=== PATIENT | female | born 1945 | race Caucasian/White ===

== ENCOUNTER 2019-07-20 16:02 | Emergency (ER) | payer MEDICARE, OTHER, SELFPAY ==
[2019-07-20] VITALS (24 sets, daily range): BP systolic 129–176; BP diastolic 55–99; PULSE 49–71; RESP 16; TEMP 37.3; O2SAT 96–100
--- NOTE | 2019-07-20 16:20 | DI.CT_ITS ---
EXAM: CT HEAD WO CLINICAL HISTORY: fall, trauma to posterior head, frontal PADGETT. TECHNIQUE: A noncontrast enhanced cranial CT was performed. COMPARISON: No exams were available for comparison FINDINGS: There is evidence of small-vessel disease. There is no evidence of an intra or extra-axial hemorrhage or fluid collection. There is no mass effect or midline shift. The white matter differentiation is normal. There is prominence of the ventricles and sulci consistent with atrophy. There is no evidenc e of a skull fracture. There is a small air-fluid level in the left maxillary sinus. There is partia l opacification of the inferior left mastoid air cells. Note is made a small posterior scalp hematoma and laceration. IMPRESSION: No acute intracranial abnormality is demonstrated. Small posterior scalp hematoma and laceration is i dentified. There is only partial visualization of a small air-fluid level in the left maxillary sinus . Partial opacification of the inferior left mastoid air cells is seen.
--- NOTE | 2019-07-20 16:23 | W.ED.GENAD ---
Discharge Plan Disposition Patient Disposition: HOME Discharge Details Chief Complaint: Trauma Clinical Impression: Laceration of scalp, Fall, Hematoma of scalp Primary Care Provider: Amish Carl ED Provider: Vish Garcia Home Meds and New Rx's Prescriptions: Continued simvastatin 5 mg Tablet See Rx Instructions .ROUTE .COMPLEX RF: 0 lisinopril 5 mg Tablet See Rx Instructions .ROUTE .COMPLEX RF: 0 fluoxetine 10 mg Capsule See Rx Instructions .ROUTE .COMPLEX RF: 0 Discharge Instructions Instructions: Laceration (ED), Scalp Contusion in Adults (ED), Staple Care (ED) Additional Instructions: Please return to the emergency department for staple removal in 10 days. Please contact your primary care physician to arrange follow-up. Return to the ER for any worsening or new concerning symptoms. Referrals: Amish Carl [Primary Care Provider] - Medical Decision Making 73-year-old female here with headache and scalp hematoma after slip and fall with trauma to posterior head. Consider acute life-threatening intracranial traumatic hemorrhage. Plan to CT head. Will irrigate wounds and assess for laceration. Tetanus up-to-date 2010. 18:19 --CT head interpreted by radiology: FINDINGS: Brain: Nonspecific hypodensities of the periventricular and deep subcortical white matter, most likely secondary to chronic small vessel ischemic change. No intracranial hemorrhage or extra-axial fluid collection. No evidence of mass effect or midline shift. Staley-white matter differentiation is normal. Ventricles: Prominence of the ventricles and sulci, most likely attributed to parenchymal volume loss. Bones/joints: No acute osseus lesion or fracture. Sinuses: Partially visualized small air-fluid level in left maxillary sinus. Mastoid air cells: Partial opacification of inferior left mastoid air cells. Soft tissues: Small posterior scalp hematoma and laceration. IMPRESSION: 1. No acute intracranial pathology. 2. Small posterior scalp hematoma and laceration. 3. Partially visualized small air-fluid level in left maxillary sinus. 4. Partial opacification of inferior left mastoid air cells. 5. Other chronic findings, as above. Scalp to be irrigated and cleansed by nursing. --Scalp was reexamined after cleansing and small 0.5 cm laceration oozing blood. Let was applied. Wound was closed with staple. Usual customary discharge instructions were provided. HPI General Mode of arrival: ambulatory. Date/Time Provider Initiated Documentation: 07/20/19 16:20. Limitations to Documentation: no limitations. Information obtained by: patient. HPI Narrative: 73-year-old female presents after mechanical slip and fall just prior to arrival with chief complaint of head pain. Patient notes she hit the back of her head on the ground. She did not lose consciousness but does have frontal headache. No associated neck pain. No other injury. Related Data Home Medications Medication Instructions Recorded Confirmed fluoxetine See Rx Instructions .ROUTE .COMPLEX 07/20/19 07/20/19 lisinopril See Rx Instructions .ROUTE .COMPLEX 07/20/19 07/20/19 simvastatin See Rx Instructions .ROUTE .COMPLEX 07/20/19 07/20/19 Allergies Allergy/AdvReac Type Severity Reaction Status Date / Time No Known Allergies Allergy Unverified 07/20/19 16:09 General Stated Complaint: Trauma TIMOTHY: 3 Review of Systems Constitutional Constitutional: Reports headache(s) ENT Ears, Nose, Mouth, and Throat: Reports headache(s) Cardiovascular Cardiovascular: Denies syncope Integumentary/Breasts Skin/Breast: Reports wounds (Posterior scalp) Neurologic Neurologic: Denies syncope and Reports headache(s) [facility] Social History Smoking/Tobacco Use Status: Former Tobacco Use Alcohol Intake: never Substance use type: does not use Do you feel safe at home: Yes Do you feel safe in your relationship?: Yes Exam Const General: cooperative and no acute distress HENMT Head: hematoma (Occiput) Face and sinus: normal facial exam Mouth: moist mucous membranes Throat: posterior oropharynx normal Eyes Conjunctivae: normal conjunctivae Sclera: normal sclerae Pupils: PERRL EOM: EOM intact bilaterally Neck Neck: full ROM, trachea midline, supple and nontender Resp Auscultation: clear to auscultation bilaterally, no rales, no rhonchi and no wheezes Cardio Jugular venous pressure: no JVD Rate: regular rate and not tachycardic Rhythm: regular rhythm Skin Trauma: laceration (posterior occiput 0.5cm oozing blood) Neuro General: alert, awake, oriented x3 and tone normal Extrem General: no edema Psych Appearance: grossly normal Mental Status: mental status grossly normal Speech and Movement: speech and movement normal Course Vital Signs Vital signs: Vital Signs Temperature 37.3 C 07/20/19 16:01 Pulse 71 07/20/19 16:01 Respiratory Rate 16 07/20/19 16:01 Blood Pressure 168/99 H 07/20/19 16:01 Pulse Oximetry 99 07/20/19 16:01 Temperature 37.3 C 07/20/19 16:01 Temperature Source Skin 07/20/19 16:01 Pulse 71 07/20/19 16:01 Respiratory Rate 16 07/20/19 16:01 Respiratory Effort 07/20/19 16:17 Blood Pressure 168/99 H 07/20/19 16:01 Pulse Oximetry 99 07/20/19 16:01 Oxygen Delivery Method Room Air 07/20/19 16:01 Oxygen Flow Rate 0 07/20/19 16:01 Pain Level 3 07/20/19 16:01 Procedures Laceration Laceration 1: Site: scalp Size (cm): 0.5 Description: linear Depth: simple, single layer Local Anesthetic: other anesthetic (LET) Pre-repair: irrigated extensively Size (cm): other (karlee) Number of sutures: 2
--- NOTE | 2019-07-20 16:52 | DI.VRAD_ITS ---
PROCEDURE INFORMATION: Exam: CT Head without contrast Exam date and time: 07/20/2019 4:33 PM Clinical history: 73 years old, female; Other: Fall, trauma to posterior head, frontal PADGETT TECHNIQUE: Imaging protocol: Computed tomography of the head without contrast. Radiation optimization: All CT scans at this facility use at least one of these dose optimization techniques: automated exposure control; mA and/or kV adjustment per patient size (includes targeted exams where dose is matched to clinical indication); or iterative reconstruction. COMPARISON: No relevant prior studies available. FINDINGS: Brain: Nonspecific hypodensities of the periventricular and deep subcortical white matter, most likely secondary to chronic small vessel ischemic change. No intracranial hemorrhage or extra-axial fluid collection. No evidence of mass effect or midline shift. Staley-white matter differentiation is normal. Ventricles: Prominence of the ventricles and sulci, most likely attributed to parenchymal volume loss. Bones/joints: No acute osseus lesion or fracture. Sinuses: Partially visualized small air-fluid level in left maxillary sinus. Mastoid air cells: Partial opacification of inferior left mastoid air cells. Soft tissues: Small posterior scalp hematoma and laceration. IMPRESSION: 1. No acute intracranial pathology. 2. Small posterior scalp hematoma and laceration. 3. Partially visualized small air-fluid level in left maxillary sinus. 4. Partial opacification of inferior left mastoid air cells. 5. Other chronic findings, as above. Dictated and Authenticated by: Kilo Flynn MD. Ordering:ARTURO Wahl MD
[2019-07-20] MEDS: Acetaminophen 325 MG TAB 650 MG PO (19:57)
== END 2019-07-20 19:50 | disposition home or self-care (01) ==
PROVIDERS: Emergency Provider Student in an Organized Health Care Education/Training Program; PCP Nurse Practitioner Family
DX: S01.01XA Laceration without foreign body of scalp, initial encounter (principal); S00.03XA Contusion of scalp, initial encounter; W01.0XXA Fall on same level from slipping, tripping and stumbling without subsequent striking against object, initial encounter
CPT/HCPCS: 12001; 99284; 70450

== ENCOUNTER 2022-05-12 23:03 | Inpatient (IN) | payer MEDICARE, OTHER, SELFPAY ==
[2022-05-12 23:20] VITALS: BP 147/77; PULSE 50; RESP 18; TEMP 36; O2SAT 100
[2022-05-12 23:48] VITALS: BP 147/77; PULSE 50; RESP 18; TEMP 36; O2SAT 100
[2022-05-13] VITALS (15 sets, daily range): BP systolic 93–162; BP diastolic 43–92; PULSE 42–70; RESP 14–19; TEMP 35.2–36.7; O2SAT 92–100; BMI 17.4
[2022-05-13] MEDS: Lactated Ringers 1,000 ML 50 ML IV (00:52)
[2022-05-13] MEDS: fentaNYL 100 MCG/2 ML VIAL 25 MCG IVP ×2 (05:54→10:27)
--- NOTE | 2022-05-13 06:57 | W.PM.HP.N ---
Assessment and Plan Assessment and plan (1) Hip fracture: Status: Acute Assessment and plan: Consult with orthopedics for repair. (2) Dementia: Status: Chronic Assessment and plan: This is chronic and she cannot provide any significant history. (3) Hypertension: Status: Chronic Assessment and plan: This is stable at the present time. (4) Elevated serum creatinine: Status: Acute Assessment and plan: Her creatinine was stable and normal a few weeks ago according to the ED in [place]. Her BMP is pending for today. History of Present Illness History of Present Illness Chief Complaint: hip fracture Narrative: This 76-year-old female lives in a senior living facility in [facility]. She fell at the [facility] yesterday and was taken to [facility] in [facility]. She had a evaluation there and was found to have an intertrochanteric fracture of the hip. They had no orthopedic surgeon available to repair the hip so they contacted our orthopedic service. I was asked to admit the patient here and orthopedics will do a consultation and hip surgery later today if she is medically stable. She has the following chronic medical problems dementia, history of carcinoma in situ of the cervix, depression, hypertension, diverticulosis of the colon, osteoporosis, history of COVID 19. She has dementia and cannot provide any history of her illness. She has no complaints at the present time. She could not state her date of but only can say it was in December 1945. She does not know the day of the week. Review of Systems Narrative: She does not complain of any pain but due to her dementia a complete review of systems is not productive. PFSH All Active Problems (Updated 05/13/22 @ 07:13 by Bryan Goodwin MD) Elevated serum creatinine (Acute) Hypertension (Chronic) Dementia (Chronic) Hip fracture (Acute) Social History Smoking/Tobacco Use Status: Former Tobacco Use Smoking risk assessment performed?: Yes Alcohol Intake: never Substance use type: does not use Do you feel safe at home: Yes Do you feel safe in your relationship?: Yes Meds Allergies and Home Medications Allergies Allergy/AdvReac Type Severity Reaction Status Date / Time No Known Allergies Allergy Unverified 07/20/19 16:09 Home Medications Medication Instructions Recorded Confirmed Type fluoxetine 10 mg capsule (Prozac) 40 mg PO DAILY 07/20/19 05/13/22 History lisinopril 5 mg tablet 40 mg PO DAILY 07/20/19 05/13/22 History simvastatin 5 mg tablet 40 mg PO QHS 07/20/19 05/13/22 History ferrous sulfate 325 mg (65 mg 325 mg PO DAILY 05/12/22 05/12/22 History iron) tablet (iron) memantine 10 mg tablet 10 mg PO QAM 05/12/22 05/12/22 History acetaminophen 650 mg tablet 650 mg PO Q4H PRN 05/13/22 05/13/22 History donepezil 10 mg tablet (Aricept) 10 mg PO QHS 05/13/22 05/13/22 History memantine 5 mg tablet 5 mg PO QPM 05/13/22 05/13/22 History Exam Const General: cooperative, comfortable and no acute distress Nutritional Appearance: average body habitus [facility] Head: normal to inspection Neck Neck: normal visual inspection, full ROM and no lymphadenopathy Thyroid: thyroid normal Resp Effort & Inspection: normal respiratory effort, able to speak in complete sentences, no retractions, no stridor and not tachypneic Auscultation: clear to auscultation bilaterally Cardio Jugular venous pressure: no JVD Rate: bradycardic Rhythm: regular rhythm Heart Sounds: S1 normal, S2 normal, no gallops, no murmurs and no rubs GI Inspection: normal to inspection Palpation: soft, no hepatosplenomegaly, not firm and nontender Neuro General: patient awake, not oriented x3, moves all extremities and patient confused Extrem General: normal to inspection Other: tender right hip on palpation Results Labs Result diagrams: 05/13/22 06:15 Last Vital Signs Temp 36.0 C L 05/13/22 00:20 Pulse 50 L 05/13/22 00:20 Resp 18 05/13/22 00:20 BP 147/77 H 05/13/22 00:20 Pulse Ox 100 05/13/22 00:20
[2022-05-13 07:03] LABS: Anion Gap 6.7 mmol/L (3-11); BUN 49 mg/dL (7-18); CO2 25.3 mmol/L (21.0-32.0); CREATININE 1.7 mg/dL (0.55-1.02); Calcium 9.7 mg/dL (8.5-10.1); Chloride 97 mmol/L (98-107); Estimated GFR 29.07 (mL/min/1.73m2); Glucose 106 mg/dL (74-106); Sodium 129 mmol/L (136-145)
--- NOTE | 2022-05-13 07:15 | OCONE_ITS ---
History of Present Illness Narrative: Challenging to obtain from patient. Denies any falls or trauma. Does not know why she is in the hospital or really where she is. Denies any pain at rest. Denies any injuries. On further questioning, does realize that she has right hip pain. Denies pain anywhere else in her body. Apparently at her baseline level of dementia. Consult Reason Right hip fracture Assessment and Plan Assessment and plan (1) Closed intertrochanteric fracture of right hip: Status: Acute Assessment and plan: 76-year-old female with displaced right hip basicervical type intertrochanteric fracture N.p.o., IV fluid, and hold chemo DVT prophylaxis Ordered new pelvis and right hip x-rays confirmed fracture pattern Plan on surgery today after appropriate medical and anesthesia evaluations: Right hip intramedullary nailing Discussed with primary medical team and CRNAs Will discuss with patient's daughter, Linnea DORMAN All Active Problems (Updated 05/13/22 @ 07:30 by Chinedu Payne MD) Closed intertrochanteric fracture of right hip (Acute 05/12/22) Elevated serum creatinine (Acute) Hypertension (Chronic) Dementia (Chronic) Social History Smoking/Tobacco Use Status: Former Tobacco Use Smoking risk assessment performed?: Yes Alcohol Intake: never Substance use type: does not use Do you feel safe at home: Yes Do you feel safe in your relationship?: Yes Exam Narrative Exam Narrative: Comfortable, pleasant, although unclear mental status reportedly at her baseline level of dementia. Does know who she is and when she was born. Breathing comfortably on room air. No coughs or wheezes. 2+ right dorsalis pedis pulse. Regular rate and rhythm. Demonstrates intact motor without difficulty bilateral upper extremities and left lower extremity. Reports right hip lateral and deep discomfort on attempted repositioning. T enderness confirmed with gentle palpation. Unable to demonstrate active right hip motion. Lightly testing logroll axial load confirms right hip as source of pain. Grossly sensory intact throughout the right lower extremity. Demonstrates intact motor foot ankle and toes. No signs of Blood clot. Results Last Vital Signs Temp 96.8 F L 05/13/22 00:20 Pulse 50 L 05/13/22 00:20 Resp 18 05/13/22 00:20 BP 147/77 H 05/13/22 00:20 Pulse Ox 100 07/28/22 00:20 Labs Result diagrams: 05/13/22 06:15 Imaging Imaging Studies: Limited quality outside pelvis and right hip x-rays show displaced right hip basicervical type intertrochanteric fracture
--- NOTE | 2022-05-13 08:41 | DI.RAD_ITS ---
Exam(s) XR HIP RT COMPLETE AP PELVIS EXAM: XR HIP RT COMPLETE AP PELVIS CLINICAL HISTORY: Right hip fx. TECHNIQUE: 2D digital imaging was performed of the right hip. Two images were obtained. AP pelvis a nd lateral right hip views were obtained. COMPARISON: CR XR HIP RT MIN 2V AND PELVIS from 05/12/2022 FINDINGS: BONES: There does not appear to be any significant change in the impacted comminuted intertrochanteri c fracture of the right femur. The femoral head is seated within the acetabulum. No bony destructiv e lesion is seen. JOINTS: No dislocation present. SOFT TISSUE: Normal. IMPRESSION: Stable acute comminuted intertrochanteric fracture of the right femur. DATA REPOSITORY: RADIATION DOSE DELIVERED:
[2022-05-13] MEDS: FLUoxetine 20 MG CAP 40 MG PO (09:30)
[2022-05-13] MEDS: Memantine 5 MG TAB 10 MG PO (09:31)
--- NOTE | 2022-05-13 10:18 | ANES.PREOP_ITS ---
General Info Date of Service Date Performed: 05/13/22 Height: 5 ft 5 in Weight: 47.5 kg Body Mass Index (BMI): 17.4 Surgical Procedure: Operation Date: 05/13/22 14:15 Proposed Procedure Side Surgeon p Hip TFNA Short Right Chinedu Payne MD Meds Allergies and Home Medications Allergies Allergy/AdvReac Type Severity Reaction Status Date / Time No Known Allergies Allergy Unverified 07/20/19 16:09 Home Medication Medication Instructions Recorded fluoxetine 10 mg capsule (Prozac) 40 mg PO DAILY 07/20/19 lisinopril 5 mg tablet 40 mg PO DAILY 07/20/19 simvastatin 5 mg tablet 40 mg PO QHS 07/20/19 ferrous sulfate 325 mg (65 mg 325 mg PO DAILY 05/12/22 iron) tablet (iron) memantine 10 mg tablet 10 mg PO QAM 05/12/22 acetaminophen 650 mg tablet 650 mg PO Q4H PRN 05/13/22 donepezil 10 mg tablet (Aricept) 10 mg PO QHS 05/13/22 memantine 5 mg tablet 5 mg PO QPM 05/13/22 Current Visit Medications: Current Medications Generic Name Dose Route Start Last Admin Trade Name Freq PRN Reason Stop Dose Admin Donepezil HCl 10 mg 05/13/22 22:00 Donepezil 5 Mg Tab PO HS YADI Fentanyl 25 mcg 05/12/22 23:13 05/13/22 05:54 Fentanyl 100 Mcg/2 Ml Vial IVP 25 mcg Q2H PRN PRN Administration Fluoxetine HCl 40 mg 05/13/22 08:30 05/13/22 09:30 Fluoxetine 20 Mg Cap PO 40 mg DAILY YAID Administration Ringer's Solution 1,000 mls @ 50 mls/hr 05/12/22 23:15 05/13/22 00:52 IV 50 mls/hr INFUSION YADI Administration Sodium Chloride 500 mls @ 0 mls/hr 05/12/22 23:18 Saline 500ml Bag IV PRN PRN As Directed IV Miscellaneous Supplies 1 each 05/12/22 23:30 Iv Access IV DIRECTED YADI Memantine 10 mg 05/13/22 08:30 05/13/22 09:31 Memantine 5 Mg Tab PO 05/15/22 08:29 10 mg QAM YADI Administration Memantine 5 mg 05/13/22 20:00 Memantine 5 Mg Tab PO 05/15/22 19:59 QPM YADI Ondansetron HCl 4 mg 05/12/22 23:13 Ondansetron 4 Mg/2 Ml Vial IVP Q4H PRN PRN Sodium Chloride 0 ml 05/12/22 23:18 Normal Saline Flush 10 Ml Syr IVP PRN PRN PFSH Active Problems Active Problems: Problem Status Onset Code Closed intertrochanteric fracture of right hip 05/12/22 S72.141A Elevated serum creatinine R79.89 Hypertension I10 Dementia F03.90 Tobacco Smoking/Tobacco Use Status: Former Tobacco Use Alcohol Alcohol Intake: never Substance Use Substance use type: does not use Vital Signs and Lab Results Vital Signs Most Recent Vital Signs in EMR: Most Recent Vital Signs Temp Pulse Resp BP Pulse Ox 36.6 C 50 L 19 98/58 L 99 05/13/22 07:34 05/13/22 07:34 05/13/22 07:34 05/13/22 07:43 05/13/22 07:34 Lab Results Result Diagrams: 05/13/22 06:15 Blood Type / Crossmatch: Patient ABO/Rh Pending 05/13/22 Complete Blood Count: No Data to Display Complete Metabolic Panel: Sodium Level 129 mmol/L (136-145) L 05/13/22 06:15 Potassium Level 5.0 mmol/L (3.5-5.1) 05/13/22 06:15 Chloride Level 97 mmol/L (98-107) L 05/13/22 06:15 Carbon Dioxide Level 25.3 mmol/L (21.0-32.0) 05/13/22 06:15 Blood Urea Nitrogen 49 mg/dL (7-18) H 05/13/22 06:15 Creatinine 1.7 mg/dL (0.55-1.02) H 05/13/22 06:15 Estimated GFR/1.73 m2 29.07 (mL/min/1.73m2) 05/13/22 06:15 Calcium Level 9.7 mg/dL (8.5-10.1) 05/13/22 06:15 Glucose Level 106 mg/dL (74-106) 05/13/22 06:15 Liver Function Panel: No Data to Display Coagulation Panel: No Data to Display Cardiac Panel: No Data to Display Arterial Blood Gas: No Data to Display Venous Blood Gas: No Data to Display Pancreas Panel: 2 No Data to Display Thyroid Panel: No Data to Display Infectious Disease: No Data to Display Blood Cultures: No Data to Display Toxicology Panel: No Data to Display Imaging and Studies Imaging and Studies Study information below may be from another EMR and interpreted by another provider. Please see original notes in EMR for more complete details. Echocardiogram Summary: 10/04: EF 60-65%, RA mild dilation, LA moderate dilation. moderate MR, trace - mild AR, moderate TR. RVSP 32 mmhg. Anesthesia Assessment and Plan Anesthesia History Personal History: No History of Anesthesia Complications Family History: No Family History of Anesthesia Complications Exercise Tolerance Exercise Tolerance: Unknown Cardiac & Pulmonary Exam Cardiac Exam: Normal S1/S2 Heart Sounds Pulmonary Exam: Clear Bilateral Breath Sounds Implantable Cardiac Device Does patient have a Pacemaker or an ICD?: No Airway Exam Known Difficult Airway: No Mallampati Class: 2 Mouth Opening: Normal (> 3cm) Thyromental Distance: Greater than 3 cm Neck Range of Motion: Full ROM Neck Circumference: Normal Teeth Condition: Removable Dentures/Plates Upper and Edentulous ASA Classification ASA Score: ASA 3 Emergency Case?: No NPO Status NPO Status: NPO Clears >2 hours, Solids >8 hours Anesthesia Plan Resuscitation Status: Full Code Anesthesia Technique: General Anesthesia Airway Planned: LMA Monitors Used: Standard Monitors and Arterial Line (+/- ) Preoperative Comments:: 76 yo female who sustained a fall and hip fracture. Sig PMHx: former smoker, dementia (memantine, donepezil), HTN (lisinopril), GFR 29/creat 1.7 today 05/12: neg covid Consent performed via phone with her daughter. DNR/DNI suspended for procedure.
--- NOTE | 2022-05-13 12:37 | PHA.REVIEW ---
Pharmacy Admission Review - Admission Clinical Review (Last Reviewed 07/20/19 @ 16:24 by Vish Garcia MD) Closed intertrochanteric fracture of right hip (Acute 05/12/22) Elevated serum creatinine (Acute) No Known Allergies Allergy (Unverified 07/20/19 16:09) Resuscitation Status DNR/DNI Height 5 ft 5 in Weight 47.5 kg - Renal Dosing Renal Dosing: BUN 49 mg/dL (7-18) H 05/13/22 06:15 Creatinine 1.7 mg/dL (0.55-1.02) H 05/13/22 06:15 Medications needing adjustments: Reviewed List of meds needing interventions: eCrCl 20 ml/min - Anticoagulation Anticoagulation: Creatinine 1.7 mg/dL (0.55-1.02) H 05/13/22 06:15 DVT Prophylaxis: Reviewed (not ordered yet, in OR today) - Opiate Usage Evaluate Pain Scale/Pains Meds: Reviewed (IVP fentanyl PRN) Scheduled Bowel Reg ordered if on Opiates?: No (will notify ) - Relevant Labs Sodium 129 mmol/L (136-145) L 05/13/22 06:15 Potassium 5.0 mmol/L (3.5-5.1) 05/13/22 06:15 Chloride 97 mmol/L (98-107) L 05/13/22 06:15 - DM Control DM Control: Glucose 106 mg/dL (74-106) 05/13/22 06:15 Insulin Dosing: N/A - BP Control BP Control: Blood Pressure 93/53 Blood Pressure 98/58 Blood Pressure 99/62 If elevated: Reviewed - Qtc Review If Elevated: N/A - IV to PO Switch IV Medications: Reviewed - Home Meds Home Med List reviewed: Reviewed Relevent Home Meds Not ordered & why?: not ordered: lisinopril, simvastatin - Current meds Current Medication Order Review: Reviewed
--- NOTE | 2022-05-13 12:43 | PDOC.CMIN ---
- If Service Date Differs Date of service: 05/13/22 Time of Service: 12:43 Care Management Initial Assess REASON FOR HOSPITALIZATION:: Hip Fracture PAST MEDICAL HISTORY/PAST SURGICAL HISTORY:: Elevated serum creatinine (Acute). Hypertension (Chronic). Dementia (Chronic). Hip fracture (Acute) PREVIOUS FUNCTIONAL STATUS/SOCIAL/FAMILY SUPPORTS:: Resides at [facility] due to end stage dementia. CURRENT FUNCTIONAL STATUS:: Concepcion is being brought to the OR for hip fx today. ADVANCE DIRECTIVES:: None on file at [facility]. Has patient been provided with info about the portal/API?: No Did the patient sign up for the portal?: No CODE STATUS:: DNR/DNI INSURANCE COVERAGE / FINANCIAL ISSUES:: Medicare. [facility] CURRENT HOME/COMMUNITY SERVICES/EQUIPMENT:: Long Term Facility: [facility] PRIMARY CARE PHYSICIAN:: Amish Carl POTENTIAL DISCHARGE NEEDS:: Coordinated return to SNF PATIENT/FAMILY EDUCATION NEEDS:: Review discharge instructions, discuss Ask Me Three. ANTICIPATED BARRIERS TO DISCHARGE:: None identified. TRANSPORTATION:: Via EMS PLAN:: Concepcion will return to [facility] when medically ready per MD. CM faxed H&P to facility. She will be brought to the OR today for hip fx and will be closely monitored post surgically for pain management. She will be evaluated by PT and transport back to SNF via EMS, coordinated by CM.
[2022-05-13] MEDS: Bupivacaine 0.25% Pres-Free 30 ML VIAL (12:53)
--- NOTE | 2022-05-13 13:36 | DI.RAD_ITS ---
Exam(s) XR HIP RT IN OR EXAM: XR HIP RT IN OR CLINICAL HISTORY: hip fracture right side TECHNIQUE: 2D and realtime digital imaging was performed. CONTRAST MATERIAL: Refer to procedure report. COMPARISON: CR XR HIP RT COMPLETE AP PELVIS from 05/13/2022 FINDINGS: Fluoroscopy was provided for Dr. Payne during the performance of a reduction and internal fixation o f the intertrochanteric fracture of the right femur. Please refer to the procedure report for comple te details. Ka,r=5.88 mGy IMPRESSION: RADIATION DOSE DELIVERED:
--- NOTE | 2022-05-13 14:11 | W.PM.OP ---
Operative Note Operative Note DATE OF PROCEDURE: 05/13/22 PRE-OP DIAGNOSIS: Right hip displaced intertrochanteric hip fracture POST-OP DIAGNOSIS: same PROCEDURE: Right hip intramedullary nail, CPT #48181 SURGEON: Chinedu Payne MUSIC EDUCATION DIRECTOR: Brianna Kurtz ANESTHESIA TYPE: Local By Surgeon and General LMA/ETT Refer to Anesthesia Record ESTIMATED BLOOD LOSS: 15 COMPLICATIONS: None Patient was transported to: PACU Patient's condition: stable Implants: Synthes TFNA [id number] 130 deg, 85mm TFNA helical blade, 40mm 5.0mm distal locking screw Indications: Please see medical record for details Findings: Displaced, comminuted, somewhat vertical, but still basicervical (as opposed to femoral neck fracture) type intertrochanteric hip fracture that aligned well on the fracture table Procedure Description: In the operating room, general anesthesia was induced. The patient was transferred and positioned supine on the fracture table. All bony prominences were well padded. Pre-operative antibiotics were administered. C-arm fluoroscopy was used to confirm appropriate provisional fracture reduction with traction and internal rotation. The correct patient, procedure, and side of the procedure were all verified prior to incision. Local anesthetic with epinephrine was infiltrated about the planned start point as well as later about the lateral entry site for cephalomedullary and distal locking screws. C-arm fluoroscopy was used to locate the appropriate start point for the guide wire on the tip of the greater trochanter. This guide wire was advanced centrally down the proximal femur to the level of the lessor trochanter. Lateral images confirmed appropriate start point on the trochanter. Next the incision was extended about the guide wire to accommodate the nailing jig and this incision was carried down through the fascia and spread apart for ease of future instrument passage. The entry reamer was inserted along with the soft tissue protection tube and this reamer was used to open the proximal femur. The entry reamer, soft tissue protector, and guidewire were removed from the proximal femur. The appropriately selected nail was assembled on the back table to the jig and tested to ensure proper passage of the cephalomedullary drill. This implant was manually inserted into the proximal femur and advanced to the appropriate level for cephalomedullary fixation. Another incision was made laterally to accommodate the cephalomedullary aiming tube and trochar, which was advanced down to bone. The guide wire was then advanced into the femoral neck and adjusted on AP and lateral fluoroscopy until it was placed near subchondral bone in the center-center position in the femoral head. The depth gauge was used to measure the helical blade length accommodating for depth of guidewire insertion. Next, the drill was used to open the lateral cortex and the helical blade was advanced to the appropriate depth by gentle mallet blows. Traction was released and the fracture was allowed to gently compress. The set screw was engaged and backed off 180 degrees to allow for rotationally-controlled sliding and compression. The cephalomedullary aiming guide was removed. The distal locking screw guide was inserted through another small incision down the bone. The drill was used to drill for this static locking screw and measure the length. The appropriate length screw was then inserted bicortically. The jig was removed from the nail. Final AP, lateral, and internal and external rotation fluoroscopic images were taken and confirmed appropriate fracture reduction and implant placement. All wounds were copiously irrigated. Deep layers were well reapproximated. Subcutaneous tissue was closed using 2-0 monocryl in a buried interrupted fashion. Skin glue was applied to all incisions. Incisions were covered with Mepilex Band-Aids. The patient awoke from anesthesia without complication and was transferred to the recovery room in stable condition.
--- NOTE | 2022-05-13 14:33 | W.PM.PROGNOT ---
Date of Service Date of service: 05/13/22 Time of Service: 14:17 Assessment and Plan Assessment and plan (1) Closed intertrochanteric fracture of right hip: Status: Acute Assessment and plan: 76-year-old female postop day #0 status post right Hip IMN Complete 24 hours postoperative antibiotics Discontinue Joaquin catheter postop day #1 assuming adequate urine output Pain control-Multimodal Physical therapy ordered: Weightbearing as tolerated with assist device May start chemical DVT prophylaxis tomorrow assuming hemodynamically stable-need to weigh risks and benefits of Lovenox versus aspirin given advanced age, severe dementia, and high fall risk Continue mechanical DVT prophylaxis with SCDs and/or KANDICE hose I will see the patient tomorrow Discharge when medically appropriate Follow-up with Dr. Payne outpatient [facility] in 2 to 3 weeks Discussed with prior medical team and patient's daughter Objective Last Vital Signs Temp 98.1 F 05/13/22 14:10 Pulse 47 L 05/13/22 14:10 Resp 16 05/13/22 14:10 BP 156/67 H 05/13/22 14:10 Pulse Ox 94 05/13/22 14:10 Laboratory Results - last 24 hr 05/13/22 05/13/22 06:15 11:05 Sodium 129 L Potassium 5.0 Chloride 97 L Carbon Dioxide 25.3 Anion Gap 6.7 BUN 49 H Creatinine 1.7 H Estimated GFR/1.73 m2 29.07 Glucose 106 Calcium 9.7 Patient ABO/Rh A Positive Antibody Screen POSITIVE Crossmatch See Detail
--- NOTE | 2022-05-13 14:57 | W.ANESPOSTOP ---
Postoperative Evaluation Date, Time and Location Date Performed: 05/13/22 Time Performed: 14:57 Patient Location: PACU Vital Signs Most Recent Imported Vital Signs: Most Recent Vital Signs Temp Pulse Resp BP Pulse Ox 36.7 C 44 L 14 158/43 H 98 05/13/22 14:30 05/13/22 14:30 05/13/22 14:30 05/13/22 14:30 05/13/22 14:30 Pain Score Most Recent Pain Score: Most Recent Pain Score Pain Level 3 05/13/22 11:34 Assessment Mental Status: Arousable with meaningful communication (Dementia at baseline) Airway and Respiratory Function: Patent airway with normal (patient baseline) respiratory exam Cardiovascular Function: Hemodynamically Stable (HR in the 40s: patient was also bradycardic in the same range preoperatively. ) Hydration Status: Adequately Hydrated Nausea & Vomiting: No Nausea or Vomiting Pain: Pt. Denies Any Pain Peripheral Nerve Block: Patient did not receive a nerve block Postoperative Comments:: Discussed current VS with Dr. Jimenez. Patient is cleared for previous admission status and will be transferred to the floor from PACU. Floor staff made aware per PACU RNs. DNR/DNI back in place.
[2022-05-13 18:12] LABS: Bilirubin Negative (Negative); Blood Negative (Negative); Clarity Clear (Clear); Glucose Negative (Negative); Ketones 15 mg/dL (Negative); Leukocyte Esterase Negative (Negative); Nitrite Negative (Negative); Urobilinogen 0.2 EU/dL (Up TO 0.2); pH 5.5 (5-8)
[2022-05-13] MEDS: Memantine 5 MG TAB PO (20:22)
[2022-05-13] MEDS: ceFAZolin 1 GM/50 ML BAG IV (20:22)
[2022-05-13] MEDS: Donepezil 5 MG TAB 10 MG PO (23:21)
[2022-05-14] MEDS: Lactated Ringers 1,000 ML 50 ML IV ×2 (00:41→18:22)
[2022-05-14] MEDS: ceFAZolin 1 GM/50 ML BAG IV ×2 (04:01→11:16)
[2022-05-14 07:02] LABS: Abs Immature Grans 0.02 10^3/uL (0.0-0.06); Absolute Basophil Count 0.02 10^3/uL (0.0-0.2); Absolute Eosinophil Count 0.03 10^3/uL (0.0-0.7); Absolute Lymphocyte Count 1.23 10^3/uL (1.2-3.4); Absolute Monocyte Count 0.48 10^3/uL (0.1-0.8); Absolute Neutrophil Count 6.17 10^3/uL (1.2-6.7); Basophils % 0.3; Eosinophils % 0.4; HCT 31.3 % (36.0-46.0); HGB 10.3 g/dL (11.2-15.7); Immature Grans % 0.3; Lymphocytes % 15.5; MCH 31.1 pg (27.0-33.0); MCHC 32.9 % (32.0-36.0); MCV 95 fL (80-95); MPV 9.7 fL (8.0-11.0); Neutrophils % 77.5; Platelet Count 193 10^3/uL (130-400); RBC 3.31 10^6/uL (3.93-5.22); RDW 13.5 % (11.7-14.6); RDW-SD 46.7 fL; WBC 7.95 10^3/uL (4.4-10.8)
[2022-05-14 07:08] LABS: Anion Gap 7.1 mmol/L (3-11); BUN 39 mg/dL (7-18); CO2 26.9 mmol/L (21.0-32.0); CREATININE 1.1 mg/dL (0.55-1.02); Calcium 9.3 mg/dL (8.5-10.1); Chloride 100 mmol/L (98-107); Estimated GFR 48.04 (mL/min/1.73m2); Glucose 94 mg/dL (74-106); Potassium 4.8 mmol/L (3.5-5.1); Sodium 134 mmol/L (136-145)
[2022-05-14 07:11] VITALS: BP 94/55; PULSE 50; RESP 16; TEMP 36.8; O2SAT 97
--- NOTE | 2022-05-14 07:35 | W.PM.PROGNOT ---
Date of Service Date of service: 05/14/22 Time of Service: 07:30 Assessment and Plan Assessment and plan (1) Closed intertrochanteric fracture of right hip: Status: Acute Assessment and plan: 76-year-old female postop day #1 status post right Hip IMN Complete 24 hours postoperative antibiotics Discontinue Joaquin catheter postop day #1 assuming adequate urine output Pain control-Multimodal Physical therapy: Weightbearing as tolerated with assist device May start chemical DVT prophylaxis assuming hemodynamically stable-need to weigh risks and benefits and consider goals of care of Lovenox versus aspirin for usual 30 days given advanced age, significant dementia, and high fall risk Continue mechanical DVT prophylaxis with SCDs and/or KANDICE hose Discharge when medically appropriate Follow-up with Dr. Payne outpatient [facility] in 2 to 3 weeks Call me directly with any questions or concerns about this patient Subjective Subjective Interval history since last seen: No complaints Exam Narrative Exam Narrative: Largely unobtainable. Sleeping comfortably. Seemingly unaware of hip fracture or surgery. Right hip dressings are clean, dry, and intact. No surrounding erythema or ecchymosis. Thigh compartments soft. 2+ dorsalis pedis pulse. Objective Last Vital Signs Temp 98.2 F 05/14/22 07:11 Pulse 50 L 05/14/22 07:11 Resp 16 05/14/22 07:11 BP 94/55 L 05/14/22 07:11 Pulse Ox 97 05/14/22 07:11 Laboratory Results - last 24 hr 05/13/22 05/13/22 05/14/22 11:05 16:50 06:04 WBC RBC Hgb Hct MCV MCH MCHC RDW Plt Count MPV Immature Gran % Neutrophils % Lymphocytes % Monocytes % Eosinophils % Basophils % Nucleated RBC % Absolute Neutrophils Absolute Lymphocytes Absolute Monocytes Absolute Eosinophils Absolute Basophils Sodium 134 L Potassium 4.8 Chloride 100 Carbon Dioxide 26.9 Anion Gap 7.1 BUN 39 H Creatinine 1.1 H Estimated GFR/1.73 m2 48.04 Glucose 94 Calcium 9.3 Urine Color Yellow Urine Clarity Clear Urine pH 5.5 Ur Specific [place] 1.020 Urine Protein Negative Urine Ketones 15 H Urine Blood Negative Urine Nitrite Negative Urine Bilirubin Negative Urine Urobilinogen 0.2 Ur Leukocyte Esterase Negative Urine Glucose Negative Patient ABO/Rh A Positive Antibody Screen POSITIVE Antibody Identification Anti-K Crossmatch See Detail 05/14/22 06:04 WBC 7.95 RBC 3.31 L Hgb 10.3 L Hct 31.3 L MCV 95 MCH 31.1 MCHC 32.9 RDW 13.5 Plt Count 193 MPV 9.7 Immature Gran % 0.3 Neutrophils % 77.5 Lymphocytes % 15.5 Monocytes % 6.0 Eosinophils % 0.4 Basophils % 0.3 Nucleated RBC % 0.0 Absolute Neutrophils 6.17 Absolute Lymphocytes 1.23 Absolute Monocytes 0.48 Absolute Eosinophils 0.03 Absolute Basophils 0.02 Sodium Potassium Chloride Carbon Dioxide Anion Gap BUN Creatinine Estimated GFR/1.73 m2 Glucose Calcium Urine Color Urine Clarity Urine pH Ur Specific [place] Urine Protein Urine Ketones Urine Blood Urine Nitrite Urine Bilirubin Urine Urobilinogen Ur Leukocyte Esterase Urine Glucose Patient ABO/Rh Antibody Screen Antibody Identification Crossmatch
[2022-05-14] MEDS: oxyCODONE 5 MG TAB 2.5 MG PO (09:24)
[2022-05-14] MEDS: FLUoxetine 20 MG CAP 40 MG PO (09:25)
[2022-05-14] MEDS: Memantine 5 MG TAB 10 MG PO (09:25)
--- NOTE | 2022-05-14 09:54 | W.NUTCONSULT ---
Date of service: 05/14/22 Time of Service: 09:54 Nutritional Consult ASSESSMENT: 76 yo female admitted with hip fracture. PMH: dementia, HTN, osteoarthritis with BMI of 17 indicating underweight status. At high nutritional risk and at risk for poor healing s/p surgical hip fracture repair. Estimated Needs: [id number] kcal, 50-60 g protein, 1350 ml fluid NUTRITIONAL DIAGNOSIS: Increased nutrient needs in view of low weight and s/p surgery INTERVENTION: Advance diet as tolerated Recommend 1 oz liquid protein TID, MVI, 500 mg Vit C and 220 mg zinc sulfate x 14 days to aid in heailng ensure clear at meals MONITORING AND EVALUATION: po intake, labs and weight Time Spent in Nutritional Counseling and Treatment: 0
[2022-05-14] MEDS: Normal Saline Flush 10 ML SYR IVP ×2 (10:04→18:17)
[2022-05-14] MEDS: ACETAMINOPHEN 1,000 MG/100 ML BTL 400 MG IVPB ×2 (10:05→18:16)
[2022-05-14] MEDS: HYDROmorphone 2 MG/ML SYR 0.25 MG IVP (10:06)
[2022-05-14] MEDS: Enoxaparin 40 MG/0.4 ML SYR SC (10:16)
[2022-05-14 11:11] VITALS: O2SAT 95
--- NOTE | 2022-05-14 11:22 | W.PM.PROGNOT ---
Date of Service Date of service: 05/14/22 Time of Service: 10:00 Assessment and Plan Assessment and plan (1) Closed intertrochanteric fracture of right hip: Status: Acute Assessment and plan: 76-year-old female postop day #1 status post right Hip IMN Pain control-Multimodal - tylenol IV, dilaudid IV - refusing PO Physical therapy: Weightbearing as tolerated with assist device (2) Dementia: Status: Chronic Assessment and plan: Safety measures, reorient, Namenda, (3) Elevated serum creatinine: Status: Resolved Assessment and plan: BUN down from 49 to 39; Creatinine down from 1.7 to 1.1 (4) Hypertension: Status: Chronic Assessment and plan: Blood pressure stable here, 120'2/60's - hold lisinopril (5) DVT prophylaxis: Status: Acute Assessment and plan: Enoxaparin; Continue mechanical DVT prophylaxis with SCDs and/or KANDICE hose (6) Discharge planning issues: Status: Acute Assessment and plan: Return to LTC facility when medically stable (7) Anorexia: Status: Acute Assessment and plan: Encourage meals, snacks, protein (8) Pain: Status: Acute Assessment and plan: Tylenol IV scheduled; dilaudid IV PRN Subjective Subjective Patient reports: no new complaints Interval history since last seen: Alert to voice, very somnolent, refusing PO meds. Exam Narrative Exam Narrative: Sleeping comfortably. Right hip dressings are clean, dry, and intact. No surrounding erythema or ecchymosis. Thigh compartments soft. 2+ dorsalis pedis pulse. Const General: no acute distress Nutritional Appearance: average body habitus [facility] Head: normal to inspection Neck Neck: normal visual inspection, full ROM and no lymphadenopathy Thyroid: thyroid normal Resp Effort & Inspection: normal respiratory effort, able to speak in complete sentences, no retractions, no stridor and not tachypneic Auscultation: clear to auscultation bilaterally Cardio Jugular venous pressure: no JVD Rate: bradycardic Heart Sounds: S1 normal, S2 normal, no gallops, no murmurs and no rubs GI Inspection: normal to inspection Palpation: soft, no hepatosplenomegaly, not firm and nontender Neuro General: patient awake, not oriented x3, moves all extremities and patient confused Extrem General: normal to inspection Other: tender right hip on palpation Objective Last Vital Signs Temp 36.8 C 05/14/22 07:11 Pulse 50 L 05/14/22 07:11 Resp 16 05/14/22 07:11 BP 94/55 L 05/14/22 07:11 Pulse Ox 95 05/14/22 11:11 Laboratory Results - last 24 hr 05/13/22 05/13/22 05/14/22 11:05 16:50 06:04 WBC RBC Hgb Hct MCV MCH MCHC RDW Plt Count MPV Immature Gran % Neutrophils % Lymphocytes % Monocytes % Eosinophils % Basophils % Nucleated RBC % Absolute Neutrophils Absolute Lymphocytes Absolute Monocytes Absolute Eosinophils Absolute Basophils Sodium 134 L Potassium 4.8 Chloride 100 Carbon Dioxide 26.9 Anion Gap 7.1 BUN 39 H Creatinine 1.1 H Estimated GFR/1.73 m2 48.04 Glucose 94 Calcium 9.3 Urine Color Yellow Urine Clarity Clear Urine pH 5.5 Ur Specific [place] 1.020 Urine Protein Negative Urine Ketones 15 H Urine Blood Negative Urine Nitrite Negative Urine Bilirubin Negative Urine Urobilinogen 0.2 Ur Leukocyte Esterase Negative Urine Glucose Negative Patient ABO/Rh A Positive Antibody Screen POSITIVE Antibody Identification Anti-K Crossmatch See Detail 05/14/22 06:04 WBC 7.95 RBC 3.31 L Hgb 10.3 L Hct 31.3 L MCV 95 MCH 31.1 MCHC 32.9 RDW 13.5 Plt Count 193 MPV 9.7 Immature Gran % 0.3 Neutrophils % 77.5 Lymphocytes % 15.5 Monocytes % 6.0 Eosinophils % 0.4 Basophils % 0.3 Nucleated RBC % 0.0 Absolute Neutrophils 6.17 Absolute Lymphocytes 1.23 Absolute Monocytes 0.48 Absolute Eosinophils 0.03 Absolute Basophils 0.02 Sodium Potassium Chloride Carbon Dioxide Anion Gap BUN Creatinine Estimated GFR/1.73 m2 Glucose Calcium Urine Color Urine Clarity Urine pH Ur Specific [place] Urine Protein Urine Ketones Urine Blood Urine Nitrite Urine Bilirubin Urine Urobilinogen Ur Leukocyte Esterase Urine Glucose Patient ABO/Rh Antibody Screen Antibody Identification Crossmatch Reviewed Pertinent PMH: Yes Objective Narrative Objective Narrative: XR HIP RT COMPLETE ? AP PELVIS EXAM:? XR HIP RT COMPLETE ? AP PELVIS CLINICAL HISTORY: ? Right hip fx.? TECHNIQUE:? 2D digital imaging was performed of the right hip. Two images were obtained.? AP pelvis and lateral right hip? views were obtained. COMPARISON:? CR XR HIP RT MIN 2V AND PELVIS from 05/12/2022 FINDINGS: BONES: There does not appear to be any significant change in the impacted comminuted intertrochanteric fracture of the right femur.? The femoral head is seated within the acetabulum.? No bony destructive lesion is seen. JOINTS: No dislocation present. SOFT TISSUE: Normal. IMPRESSION: Stable acute comminuted intertrochanteric fracture of the right femur.?
--- NOTE | 2022-05-14 11:56 | NUR.NOTE ---
Spoke with daughter Linnea about patient's progress. During conversation mentioned that the patient has been sleepy, not motivated to eat/drink or participate in PT. Daughter then stated that the patient has been increasingly non-verbal/participative in ADLs over the past few months and taking more naps. Will continue to monitor patient and encourage participation in ADLs.
--- NOTE | 2022-05-14 12:32 | CMPROGNOTE_ITS ---
- If Service Date Differs Date of service: 05/14/22 Time of Service: 12:32 Care Management Progress Note S/O: Concepcion is somulent post surgically. PT consult delayed until Concepcion is able to participate. No change to overall plan; awaiting patient progression toward being more alert. If Concepcion remains somulent, anticipate further discussion regarding goals of care and treatment plan. CM continues to follow. A: 76 year old female admitted to [facility] 05/12/22 for Hip Fracture P: Concepcion went to the OR yesterday with orthopedic surgeon for Hip Fix. As an older female with dementia, anticipate she is not yet clearing from anesthesia and pain medication. Undetermined whether Concepcion will become more alert. PT consult pending. Anticipate Concepcion's return to [facility] when ready per MD via EMS transport. CM continues to follow.
[2022-05-14 15:23] VITALS: BP 97/61; PULSE 53; RESP 16; TEMP 36.6; O2SAT 93
--- NOTE | 2022-05-14 18:00 | NT_ITS ---
Date of service: 05/14/22 Time of Service: 17:00 PT Notes Visit Reasons: Hip Fracture Several attempts have been made today to rouse patient but due to late effects of anesthesia and pain pill intake, extended sedation is limiting ability of patient to wake up. Patient is not appropriate for physical therapy today. Communicated issue with on-call PT Charles Arshad regarding the matter and the possibility of increased responsiveness that will allow participation in therapy this weekend. Hospitalist and nurse aware of plan. Thank you for the opportunity to participate in the care of this patient. Janett Manning PT, DPT, CLT [facility] [place], [place]
[2022-05-14 22:42] VITALS: BP 91/51; PULSE 45; RESP 14; TEMP 36.5; O2SAT 94
[2022-05-15] MEDS: ACETAMINOPHEN 1,000 MG/100 ML BTL 400 MG IVPB ×3 (01:34→17:59)
[2022-05-15 07:01] LABS: HCT 27.1 % (36.0-46.0); HGB 8.9 g/dL (11.2-15.7); MCH 31.2 pg (27.0-33.0); MCHC 32.8 % (32.0-36.0); MCV 95 fL (80-95); Platelet Count 160 10^3/uL (130-400); RBC 2.85 10^6/uL (3.93-5.22); RDW 13.6 % (11.7-14.6); RDW-SD 47.4 fL; WBC 6.29 10^3/uL (4.4-10.8)
[2022-05-15] MEDS: Lactated Ringers 1,000 ML 75 ML IV (11:00)
[2022-05-15] MEDS: Normal Saline Flush 10 ML SYR IVP (11:00)
[2022-05-15 12:09] VITALS: BP 113/72; PULSE 56; RESP 16; TEMP 37; O2SAT 99
--- NOTE | 2022-05-15 13:07 | W.PM.PROGNOT ---
Date of Service Date of service: 05/15/22 Time of Service: 13:07 Assessment and Plan Assessment and plan (1) Closed intertrochanteric fracture of right hip: Status: Acute Assessment and plan: 76-year-old female postop day #3 status post right Hip IMN Pain control-Multimodal - tylenol IV, dilaudid IV - refusing PO Physical therapy: Weightbearing as tolerated with assist device (2) Dementia: Status: Chronic Assessment and plan: Safety measures, reorient, Namenda, (3) Elevated serum creatinine: Status: Resolved Assessment and plan: stable BUN 39; Creat 1.1 (4) Hypertension: Status: Chronic Assessment and plan: Blood pressure s90's, not tachycardic, not symptomatic. LTC facility reports her BP's are usually in the s90's. (5) DVT prophylaxis: Status: Acute Assessment and plan: Enoxaparin; Continue mechanical DVT prophylaxis with SCDs and/or KANDICE hose (6) Discharge planning issues: Status: Acute Assessment and plan: Return to LTC facility when medically stable - planning for Tuesday (7) Anorexia: Status: Acute Assessment and plan: Encourage meals, snacks, protein Daughter reports she has little appetite and forgets if she ate or did not, often declines meals and has had continual weight loss in the past few months. (8) Pain: Status: Acute Assessment and plan: Tylenol IV scheduled; dilaudid IV PRN She is not complaining of pain - she has not received any dilaudid, will continue with IV tylenol as she is randomly taking or not taking PO meds Subjective Subjective Interval history since last seen: Continues to be confused and not able to answer questions with any degree of accuracy. Nursing reports she is not taking po meds and not eating much food. I spoke with her daughter Linnea. Linnea reports that Concepcion's behavior is typical and nothing new. Linnea reports that Concepcion has had a decreased appetite and refusing food for some months now and she is loosing weight from that. We spoke with [facility] and they report her blood pressures there were s90's. Linnea does not feel that Palliative care is an option she wants for her mother at this point. Nursing has been taking her BP with a regular cuff, asked they use a small adult cuff, her arm is very thin. She is awake alert [facility] on Tuesday; the care managers will arrange that. Nursing reports she has been drinking the ensure that was ordered and taking some of her pills. Exam Narrative Exam Narrative: Up in a chair, awake, alert, confused, conversant. Right hip dressings are clean, dry, and intact. No surrounding erythema or ecchymosis. Thigh compartments soft. 2+ dorsalis pedis pulse. Const General: no acute distress Nutritional Appearance: average body habitus [facility] Head: normal to inspection Neck Neck: normal visual inspection, full ROM and no lymphadenopathy Thyroid: thyroid normal Resp Effort & Inspection: normal respiratory effort, able to speak in complete sentences, no retractions, no stridor and not tachypneic Auscultation: clear to auscultation bilaterally Cardio Jugular venous pressure: no JVD Rate: bradycardic Heart Sounds: S1 normal, S2 normal, no gallops, no murmurs and no rubs GI Inspection: normal to inspection Palpation: soft, no hepatosplenomegaly, not firm and nontender Neuro General: patient awake, not oriented x3, moves all extremities and patient confused Extrem General: normal to inspection Other: tender right hip on palpation Objective Last Vital Signs Temp 37 C 05/15/22 12:09 Pulse 56 L 05/15/22 12:09 Resp 16 05/15/22 12:09 BP 113/72 05/15/22 12:09 Pulse Ox 99 05/15/22 12:09 Laboratory Results - last 24 hr 05/15/22 06:24 WBC 6.29 RBC 2.85 L Hgb 8.9 L Hct 27.1 L MCV 95 MCH 31.2 MCHC 32.8 RDW 13.6 Plt Count 160 MPV 10.0 Reviewed Pertinent PMH: Yes
[2022-05-15] MEDS: FLUoxetine 20 MG CAP 40 MG PO (14:55)
[2022-05-15 15:25] VITALS: BP 97/53; PULSE 54; RESP 14; TEMP 37.2; O2SAT 98
[2022-05-15] MEDS: Donepezil 5 MG TAB 10 MG PO (21:12)
[2022-05-15 22:55] VITALS: BP 95/56; PULSE 49; RESP 16; TEMP 36.6; O2SAT 100
[2022-05-16] MEDS: Lactated Ringers 1,000 ML 75 ML IV (00:38)
[2022-05-16] MEDS: ACETAMINOPHEN 1,000 MG/100 ML BTL 400 MG IVPB ×2 (01:31→10:36)
[2022-05-16 06:59] LABS: Abs Immature Grans 0.01 10^3/uL (0.0-0.06); Absolute Basophil Count 0.04 10^3/uL (0.0-0.2); Absolute Eosinophil Count 0.15 10^3/uL (0.0-0.7); Absolute Lymphocyte Count 1.18 10^3/uL (1.2-3.4); Absolute Monocyte Count 0.37 10^3/uL (0.1-0.8); Absolute Neutrophil Count 2.94 10^3/uL (1.2-6.7); Basophils % 0.9; Eosinophils % 3.2; HCT 24.9 % (36.0-46.0); HGB 8.1 g/dL (11.2-15.7); Immature Grans % 0.2; Lymphocytes % 25.2; MCH 30.9 pg (27.0-33.0); MCHC 32.5 % (32.0-36.0); MCV 95 fL (80-95); MPV 9.9 fL (8.0-11.0); Monocytes % 7.9; Neutrophils % 62.6; Platelet Count 146 10^3/uL (130-400); RBC 2.62 10^6/uL (3.93-5.22); RDW 13.4 % (11.7-14.6); RDW-SD 46.4 fL; WBC 4.69 10^3/uL (4.4-10.8)
[2022-05-16 07:25] VITALS: BP 125/67; PULSE 43; RESP 16; TEMP 36.5; O2SAT 99
[2022-05-16] MEDS: oxyCODONE 5 MG TAB 2.5 MG PO ×2 (08:56→20:18)
[2022-05-16] MEDS: FLUoxetine 20 MG CAP 40 MG PO (08:57)
[2022-05-16 11:59] LABS: Source Nasal/Nares
[2022-05-16 13:59] LABS: COVID-19 PCR Negative (Negative)
--- NOTE | 2022-05-16 14:06 | W.PM.PROGNOT ---
Date of Service Date of service: 05/16/22 Time of Service: 10:00 Assessment and Plan Assessment and plan (1) Closed intertrochanteric fracture of right hip: Status: Acute Assessment and plan: 76-year-old female postop day #4 status post right Hip IMN Pain contro, tylenol by mouth; willing to take po meds and eating currenlty Physical therapy: Weightbearing as tolerated with assist device Cleared by Ortho to return to the intermediate. (2) Dementia: Status: Chronic Assessment and plan: Safety measures, reorient, Namenda, (3) Anemia: Status: Chronic Assessment and plan: H&H 8.1 /24.9 - not unexpected ater hip surgery; we will recheck it 05/17 Not tachycardic - HR 40's-50's; BP 120s/60's - no complaint of dizziness or light headedness (4) Anorexia: Status: Acute Assessment and plan: Encourage meals, snacks, protein Daughter reports she has little appetite and forgets if she ate or did not, often declines meals and has had continual weight loss in the past few months. Eating and drinking ensure today, taking PO meds (5) Hypertension: Status: Chronic Assessment and plan: Blood pressure s90's, not tachycardic, not symptomatic. LTC facility reports her BP's are usually in the s90's. Blood pressures 120's/60's (6) Elevated serum creatinine: Status: Resolved Assessment and plan: stable BUN 39; Creat 1.1 (7) DVT prophylaxis: Status: Acute Assessment and plan: Enoxaparin; Continue mechanical DVT prophylaxis with SCDs and/or KANDICE hose (8) Discharge planning issues: Status: Acute Assessment and plan: Return to LTC facility when medically stable - planning for Tuesday (9) Pain: Status: Acute Assessment and plan: Tylenol IV scheduled; dilaudid IV PRN She is not complaining of pain - she has not received any dilaudid, will continue with IV tylenol as she is randomly taking or not taking PO meds Subjective Subjective Patient reports: no new complaints, feels better, voiding w/o difficulty and bowel movement; denies diarrhea, vomiting or shortness of breath Interval history since last seen: Concepcion had a good night as reported by nursing. Nursing gave her a kala bear last vidya and she really liked it and has it with her while sitting in a chair this morning. Her blood pressure has remained stable 120s over 60s. Heart rate continues to be in the 40s low 50s. She has had no lightheadedness, no chest pain, no shortness of breath and no dizziness. Her hemoglobin is 8.1, hematocrit 24.9, down slightly from 730, not unexpected with hip surgery, we will recheck her H&H tomorrow, 05/17/22 Her IV has been discontinued, she is taking in fluids and has no IV medications requirement. She has had no complaints of pain to her hip. We have discontinued Tylenol IV and started Tylenol by mouth as needed; she has not had any need for pain medication. This morning prior to moving from the bed to a chair (with 2 person assist), the nursing staff gave her oxycodone in anticipation of pain. This afternoon she has been awake and alert, pleasant and conversant. Discussed with Dr Tse Exam Narrative Exam Narrative: Up in a chair, awake, alert, confused, conversant. She showed me her new kala black. She was talking about her four children today, able to provide her correctly and is pleasant. She did take her po meds today and drank ensure. She took small bites bites of lunch. Right hip dressings are clean, dry, and intact. No surrounding erythema or ecchymosis. Thigh compartments soft. 2+ dorsalis pedis pulse. Const General: no acute distress Nutritional Appearance: average body habitus [facility] Head: normal to inspection Neck Neck: normal visual inspection, full ROM and no lymphadenopathy Thyroid: thyroid normal Resp Effort & Inspection: normal respiratory effort, able to speak in complete sentences, no retractions, no stridor and not tachypneic Auscultation: clear to auscultation bilaterally Cardio Jugular venous pressure: no JVD Rate: bradycardic Heart Sounds: S1 normal, S2 normal, no gallops, no murmurs and no rubs GI Inspection: normal to inspection Palpation: soft, no hepatosplenomegaly, not firm and nontender Neuro General: patient awake, not oriented x3, moves all extremities and patient confused Extrem General: normal to inspection Other: tender right hip on palpation Objective Last Vital Signs Temp 36.5 C 05/16/22 07:25 Pulse 43 L 05/16/22 07:25 Resp 16 05/16/22 07:25 BP 125/67 05/16/22 07:25 Pulse Ox 99 05/16/22 07:25 Laboratory Results - last 24 hr 05/16/22 05/16/22 06:18 11:50 WBC 4.69 RBC 2.62 L Hgb 8.1 L Hct 24.9 L MCV 95 MCH 30.9 MCHC 32.5 RDW 13.4 Plt Count 146 MPV 9.9 Immature Gran % 0.2 Neutrophils % 62.6 Lymphocytes % 25.2 Monocytes % 7.9 Eosinophils % 3.2 Basophils % 0.9 Nucleated RBC % 0.0 Absolute Neutrophils 2.94 Absolute Lymphocytes 1.18 L Absolute Monocytes 0.37 Absolute Eosinophils 0.15 Absolute Basophils 0.04 COVID-19 Source Nasal/Nares SARS-CoV-2 (PCR) Negative Reviewed Pertinent PMH: Yes
[2022-05-16 15:36] VITALS: BP 126/66; PULSE 60; RESP 16; TEMP 36.1; O2SAT 99
[2022-05-16] MEDS: Acetaminophen 500 MG TAB PO (20:18)
[2022-05-16] MEDS: Donepezil 5 MG TAB 10 MG PO (20:18)
[2022-05-16] MEDS: oxyCODONE 5 MG TAB PO (23:01)
[2022-05-16 23:22] VITALS: BP 125/65; PULSE 62; RESP 16; TEMP 36.6; O2SAT 99
[2022-05-17 07:14] LABS: HCT 25.8 % (36.0-46.0); HGB 8.6 g/dL (11.2-15.7); MCH 31.7 pg (27.0-33.0); MCHC 33.3 % (32.0-36.0); MCV 95 fL (80-95); MPV 9.9 fL (8.0-11.0); Platelet Count 168 10^3/uL (130-400); RBC 2.71 10^6/uL (3.93-5.22); RDW 13.7 % (11.7-14.6); RDW-SD 47.8 fL; WBC 5.42 10^3/uL (4.4-10.8)
[2022-05-17 08:42] VITALS: BP 118/61; PULSE 50; RESP 18; TEMP 36.6; O2SAT 99
[2022-05-17] MEDS: Acetaminophen 500 MG TAB PO (08:54)
[2022-05-17] MEDS: oxyCODONE 5 MG TAB 2.5 MG PO ×2 (08:54→10:57)
--- NOTE | 2022-05-17 10:19 | IN_ITS ---
Date of service: 05/17/22 Time of Service: 10:19 PT Notes Visit Reasons: Hip Fracture Physical Therapy Inpatient Initial Evaluation Date: 05/17/2022 Referring Doctor: Chinedu Payne MD PT Orders: PT CONSULT: Limited ability. WBAt R LE. Precautions: Fall. Standard. WBAT on R LE with AD. Patient Profile/Admitting Diagnosis: Patient is a 76-year-old female patient with R displaced intertrochanteric fracture S/P R hip intramedullary nailing on postoperative day 4. Patient has had extended sedation from anesthetics and has not been appropriate for PT services until 06/16/2022. PMHX: All Active Problems?(Updated 05/13/22 @ 07:30 by Chinedu Payne MD) Closed intertrochanteric fracture of right hip (Acute 05/12/22) Elevated serum creatinine (Acute) Hypertension (Chronic) Dementia (Chronic) Social History/Home Situation: Resident of SNF Equipment Owned/DME: FWW, wheelchair Subjective: This son of a biscuit just hurts so much!, when patient was asked to stand up and go for a walk she compains about her R hip and thigh hurting significantly. Nurse Barnett was wondering why patient was not seen in the weekend to attempt to get patient out of bed. Nurse Barnett states that they have been trying to mobilize patient since Tuesday and have been managing okay with assist of 2 people. Objective: General Observation: Patient seated on chair. Anxious about moving R LE due to pain in R hip and thigh with movement. Mental Status: Alert but not oriented as to person, place, time, and purpose. Difficult to engage due to pain level, required extensive encouragement to just transfer from bedside chair to the bed. Pain: Significant pain with movement, unable to quantify Vital Signs: WNL as closely monitored by nursing staff ROM: Right Upper Extremity: Grossly WFL Left Upper Extremity: Grossly WFL Right Lower Extremity: Unable to assess as patient is hhighly anxious about moving extremity Left Lower Extremity: Grossly WFL Strength: Right Upper Extremity: Grossly 3/5 Left Upper Extremity: Grossly 3/5 Right Lower Extremity: Hip unable to test. Knee and ankle grossly 2-/5 Left Lower Extremity: Grossly 2-/5 Bed Mobility/Transfers: Sit to stand minimal assist of 2 Stand to sit minimal assist of 2 Reclining chair to bed minimal assist of 2 Sit to supine minimal assist of 2 Gait: Instructed patient with level surface ambulation of 5 small, cautious steps requiring minmal assist of 2. Gait antalgic. Complained of pain in the R hip and thigh throughout. Balance: Static Sitting: Good Dynamic Sitting: Good Static Standing: Poor Dynamic Standing: Poor Special Tests: Mobility Limitations Standardized Measure [facility] AM-PAC 6 clicks Basic Mobility Inpatient Short Form: Raw Score: 11 CMS Score: 73% deficit Informed Consent/Education: Patient was instructed in purpose of PT consult and plan of care. Agreeable to proceed with established PT POC to achieve personal goals. Assessment: Pain is a major limiting factor for mobility performance. Be sure to premedicate to maximize participation. Patient presents with clinical signs and symptoms consistent with current/admitting diagnoses that have resulted to mobility limitations, gait instability, generalized weakness, and overall ADL decline as demonstrated by the following impairment level findings: 1. Decreased strength to R LE major muscle groups 2. Impaired sitting/standing balance 3. Impaired activity tolerance 4. Limitation of joint range of motion in R hip 5. Dementia 6. Pain in R hip and thigh Impairments are contributing to the following functional limitations: 1. Decline in bed mobility skills 2. Decline in transfer skills 3. Difficulty with ambulation without assistive device and physical assistance 4. Increased completion time for mobility ADL performance 5. Increased risk for falls 6. Difficulty with managing steps alone safely Patient is assessed as a 59331 complexity based on the following: History: 76-year-old female with past medical history as indicated above Examination: Demonstrable impairment in strength, balance, and mobility level with underlying impairments and functional limitations as exhibited above as well as deficit score of 73% utilizing the [facility] Mobility Inpatient Short Form Presentation: Evolving Decision Makin moderate complexity Goals: N/A. Patient returns to SNF today. Plan of Care/Treatment Plan: N/A. Patient returns to SNF today. DISCHARGE RECOMMENDATIONS: [] Home with no services [] [] Home with services [specify] [] Home with outpatient PT [] [X] SNF for continued rehabilitation. Patient will benefit from halfway facility placement for continued skilled physical therapy services in order to progress mobility level, strength, and balance in preparation for a safe discharge to home. [] [facility] [] [] SNF versus LTC based on ability to participate and progress [] TREATMENT CODE/TIME: 26098 x 20 minutes, 65509 x 13 minutes beginning at 10:19 AM. Thank you for the opportunity to participate in the care of this patient. Janett Manning PT, DPT, CLT [facility] [place], [place]
--- NOTE | 2022-05-17 10:20 | W.PM.DS.N ---
Date of service: 05/17/22 Time of Service: 10:20 DS: Diagnosis Discharge Diagnosis (1) Closed intertrochanteric fracture of right hip: Status: Acute (2) Dementia: Status: Chronic (3) Anemia: Status: Chronic (4) Anorexia: Status: Acute (5) Hypertension: Status: Chronic (6) Elevated serum creatinine: Status: Resolved (7) DVT prophylaxis: Status: Acute (8) Discharge planning issues: Status: Acute (9) Pain: Status: Acute Discharge Plan Disposition Patient Disposition: INTERMED.CARE FAC.(LEVEL 2) Condition: Stable Discharge Details Reason For Visit: Hip Fracture Admit Date/Time: 05/12/22 23:03 Admit Provider: Bryan Goodwin Attending Provider: Bryan Goodwin Primary Care Provider: Amish Carl Hospital Course Hospital Course: Concepcion is a 76-year-old female that lives in a custodial facility in [facility]. [facility] and was taken to [facility] in [facility].? She had a evaluation there and was found to have an intertrochanteric fracture of the right hip.? They had no orthopedic surgeon available to repair the hip so they contacted our orthopedic service.? She was admitted to [facility] medical surgical unit and orthopedics was consulted. She was found to be well enough to have her hip repaired. She underwent surgery for that right hip repair on 05/13/2022. .? She has dementia and cannot provide any history of her illness and does not recall haivng fallen or having surgery. She was quite somnolent and confused the day after surgery, refusing medication and not eating. On day 3 she became more alert and began drinking Ensure and taking her medication. 05/16/2022 she had parts of meals, and today ate some breakfast. She is getting Tylenol for pain, scheduled, she does not complain of any pain. She has oxycodone for break through pain and we will send a prescription with her. Her hemoglobin and hematocrit are stable at baseline for her. Her electrolytes are within normal limits, and her renal function is normal. She is stable and cleared by orthopedics to return to the [facility]. Home Meds and New Rx's Prescriptions: New oxycodone 5 mg tablet, oral only 2.5 mg PO Q6H PRNQty: 10 0RF Continued simvastatin 5 mg Tablet 40 mg PO QHS Rx Instructions: 40 mg lisinopril 5 mg Tablet 40 mg PO DAILY fluoxetine [Prozac] 10 mg Capsule 40 mg PO DAILY Rx Instructions: 40 mg daily ferrous sulfate [iron] 325 mg (65 mg iron) Tablet 325 mg PO DAILY memantine 10 mg Tablet 10 mg PO QAM Rx Instructions: Q AM for 1 week end on 05/14/22 memantine 5 mg Tablet 5 mg PO QPM Rx Instructions: 5mg PO Q HS Due to stop 05/14/22 donepezil [Aricept] 10 mg Tablet 10 mg PO QHS acetaminophen 650 mg Tablet 650 mg PO Q4H PRN Discharge Instructions Instructions: Hip Fracture (GEN) Stand Alone Forms: Nursing Discharge Form Referrals: Chinedu Payne MD [ [facility] STAFF PHYSICIAN] - 05/25/22 10:00 am Activity:: Activity as Tolerated Equipment/Supplies:: Walker Diet:: Low Sodium Discharge Orders Discharge Orders: Discharge Order (Routine); Ordered 05/17/22 Ordered By: Linnea Ren Discharge Data Discharge Date/Time-TO BE ENTERED AT DEPARTURE: 05/17/22 11:27 DS: Summary Time Spent with Patient providing and/or coordinating discharge services: Greater than 30 minutes Status at Discharge Functional status at discharge: bed bound Overall status at discharge: patient is not back to baseline Mental Status: mental status grossly normal (at baseline) Speech and Movement: delayed speech and slowed movement Mood: anxious mood Affect: irritable affect Exam Psych Mental Status: mental status grossly normal (at baseline) Speech and Movement: delayed speech and slowed movement Mood: anxious mood Affect: irritable affect DS: Data Vitals/I&O Vitals and I&O: Vital Signs Temperature 36.6 C 05/17/22 08:42 Temperature Source Tympanic 05/17/22 08:42 Pulse 50 L 05/17/22 08:42 Pulse Rhythm Regular 05/17/22 04:47 Respiratory Rate 18 05/17/22 08:42 Respiratory Effort Non-Labored 05/17/22 04:47 Respiratory Depth Normal 05/17/22 04:47 Respiratory Pattern Normal 05/17/22 04:47 Blood Pressure 118/61 05/17/22 08:42 Pulse Oximetry 99 05/17/22 08:42 Respiratory End-tidal CO2 21 05/13/22 14:30 Oxygen Delivery Method Room Air 05/17/22 08:42 Oxygen Flow Rate 0 05/17/22 08:42 Pain Level 0 05/17/22 08:42 Comment 05/15/22 08:36 Intake & Output 05/16/22 05/16/22 05/17/22 11:59 23:59 11:59 Intake Total 1997.75 / 2717.75 720 / 2718.75 Output Total 250 / 900 650 / 900 600 / 600 Balance 1748.75 / 1818.75 70 / 1818.75 -600 / -600 Intake: IV 75 / Oral 720 / 720 Output: Urine 250 / 900 650 / 900 600 / 600 Other: Urine Color Yellow Yellow Yellow Urine Appearance Clear Clear Clear Urine Odor Normal Data Completed and Pending Labs on day of discharge: Labs from last 24 hours 05/17/22 05/16/22 05/13/22 06:10 11:50 11:05 WBC 5.42 RBC 2.71 L Hgb 8.6 L Hct 25.8 L MCV 95 MCH 31.7 MCHC 33.3 RDW 13.7 Plt Count 168 MPV 9.9 COVID-19 Source Nasal/Nares SARS-CoV-2 (PCR) Negative Crossmatch See Detail PFSH All Active Problems Anemia (Chronic) Closed intertrochanteric fracture of right hip (Acute 05/12/22) Dementia (Chronic) Anorexia (Acute) Pain (Acute) Hypertension (Chronic) DVT prophylaxis (Acute) Discharge planning issues (Acute) Social History Smoking/Tobacco Use Status: Former Tobacco Use Smoking risk assessment performed?: Yes Alcohol Intake: never Substance use type: does not use Do you feel safe at home: Yes Do you feel safe in your relationship?: Yes
--- NOTE | 2022-05-17 10:23 | PDOC.CMDIS ---
- If Service Date Differs Date of service: 05/17/22 Time of Service: 10:23 LACE Index Scoring Tool - Questions: Length of Stay (in days): 4 - 6 Acuity (Admit via E.D.?): Yes Comorbidities: Dementia E.D. Visits: 0 - Answers: Total Score: 10 Risk of Readmission: High Risk Care Management Discharge Reason for Hospitalization: Hip Fracture Discharge Plan: Concepcion will discharge back to [facility], level 2 via EMS. Patient/Family Education Needs: Review discharge instructions, discuss Ask Me Three. Services Needed at Discharge: Long-Term Facility ([facility]: Level 2 ), Transportation ([facility])
--- NOTE | 2022-05-17 11:20 | NUR.NOTE ---
Nursing Note: At this time, this RN called report to Theodora at [facility]. All questions Theodora had were answered.
== END 2022-05-17 11:27 | disposition intermediate care facility (04) | DRG 481 ==
PROVIDERS: Family Medicine; Internal Medicine; Nurse Practitioner Acute Care; Nurse Practitioner Family; Student in an Organized Health Care Education/Training Program; Admitting Provider Family Medicine; PCP Nurse Practitioner Family; Visit Provider Family Medicine
PROC: 0QS606Z Reposition Right Upper Femur with Intramedullary Internal Fixation Device, Open Approach (ICD-10-PCS; CPT 27245; principal; 2022-05-13 13:45)
DX: S72.141A Displaced intertrochanteric fracture of right femur, initial encounter for closed fracture (principal); Z68.1 Body mass index [BMI] 19.9 or less, adult; W19.XXXA Unspecified fall, initial encounter; F03.90 Unspecified dementia, unspecified severity, without behavioral disturbance, psychotic disturbance, mood disturbance, and anxiety; I10 Essential (primary) hypertension; F32.A Depression, unspecified; K57.30 Diverticulosis of large intestine without perforation or abscess without bleeding; M81.0 Age-related osteoporosis without current pathological fracture; Z86.16 Personal history of COVID-19; Z87.891 Personal history of nicotine dependence; D64.9 Anemia, unspecified; R63.0 Anorexia
CPT/HCPCS: 27245; 36415; 80048; 85027; 86850; 86900; 86901; 86920; 87635; 97162; 97530; 99223; J1650; 73501; 73502; 81003; 85025; 86870; 86902; 99222; 99232; 99239; J0131; J0690; J1100; J1170; J2405; J2704; J3010

== ENCOUNTER 2022-05-25 11:02 | Outpatient (CLI) | payer MEDICARE, OTHER, SELFPAY ==
--- NOTE | 2022-05-25 10:00 | DI.RAD_ITS ---
Exam(s) XR HIP RT COMPLETE AP PELVIS EXAM: XR HIP RT COMPLETE AP PELVIS INDICATION: RIGHT HIP F/U. COMPARISON: XA XR HIP RT IN OR from 05/13/2022 CR XR HIP RT COMPLETE AP PELVIS from 05/13/2022 TECHNIQUE: 2D digital imaging was performed. Two views. FINDINGS: There has been no change in fracture or hardware alignment. No new abnormalities are seen. A large quantity of stool is incidentally noted in the rectum. DATA REPOSITORY: RADIATION DOSE DELIVERED:
== END 2022-05-25 11:03 | disposition home or self-care (01) ==
LOC: DIORS 11:03
PROVIDERS: PCP Nurse Practitioner Family; Referring Provider Nurse Practitioner Family; Visit Provider Student in an Organized Health Care Education/Training Program
DX: S72.141A Displaced intertrochanteric fracture of right femur, initial encounter for closed fracture (principal); W19.XXXA Unspecified fall, initial encounter
CPT/HCPCS: 73502

== ENCOUNTER 2022-08-18 10:37 | Outpatient (CLI) | payer MEDICARE, OTHER, MEDICAID, SELFPAY ==
--- NOTE | 2022-08-18 10:00 | DI.RAD_ITS ---
Exam(s) XR HIP RT AP LAT ONLY EXAM: XR HIP RT AP LAT ONLY INDICATION: intertrochanteric fx f/u. COMPARISON: CR XR HIP RT COMPLETE AP PELVIS from 05/25/2022 TECHNIQUE: 2D digital imaging was performed. Two views. FINDINGS: There has been no change in the alignment the hardware in the proximal femur. There is been increase d fracture healing from the prior exam. No new abnormalities. DATA REPOSITORY: RADIATION DOSE DELIVERED:
== END 2022-08-18 10:38 | disposition home or self-care (01) ==
LOC: DIORS 10:38
PROVIDERS: PCP Nurse Practitioner Family; Referring Provider Nurse Practitioner Family; Visit Provider Student in an Organized Health Care Education/Training Program
DX: S72.141D Displaced intertrochanteric fracture of right femur, subsequent encounter for closed fracture with routine healing (principal); X58.XXXD Exposure to other specified factors, subsequent encounter
CPT/HCPCS: 99213; 73502